=== PATIENT | male | born 1960 | race Caucasian/White ===

== ENCOUNTER → 2016-05-21 | Outpatient (CLI) | payer OTHER ==
[2016-05-21 14:40] LABS: BUN 16 mg/dl (7-24); EST GLOM FILT AFRICAN AMERICAN > 60 ml/min
== END | disposition home or self-care (01) ==
LOC: CT 14:00 → LAB 14:05
PROVIDERS: Family Medicine
DX: R13.10 Dysphagia, unspecified (principal)

== ENCOUNTER → 2016-07-23 | Day surgery (SDC) | payer OTHER ==
[~2016-07-23] VITALS: Ht 177.8 cm; Wt 108.9 kg
[~2016-07-23] MED LIST: LEVOTHYROXIN0.125 M1 PO
--- NOTE | ~2016-07-23 | O ---
[place], [place] OPERATIVE NOTE NAME: NUZHAT JOHNSON UNIT #: [id number] ROOM: DOCTOR: SINDY STARK MD BIRTHDATE: [birth year] DOS: HISTORY OF PRESENT ILLNESS: A 55-year-old patient who has presented with chief complaint of colonic screening concern, undergoing investigation. ALLERGIES: . FAMILY HISTORY: Noncontributory. PAST SURGICAL HISTORY: Lipoma and wisdom teeth extraction. PAST MEDICAL HISTORY: Hypothyroidism. SOCIAL HISTORY: Nonsmoker, nonalcohol consumer. PROCEDURE: Today's procedure part of investigation is colonoscopy plus polypectomy. PREMEDICATION: Versed and Diprivan. SCOPE: Olympus forward-viewing colonoscope 10L video. REPORT: After putting the patient in the left lateral position and after application of lubricant to the scope, the scope was introduced. Thereafter, under direct visualization, I advanced through the length of colon without difficulty. Base of the cecum explored, appendiceal orifice identified, and ileocecal valve was defined. Two polypoid lesions seen above cecum with piecemeal polypectomy removed. Two other polypoid lesions from sigmoid colon 1 with piecemeal polypectomy, one with snare were polypectomized. Samples recovered. Air was suctioned out. The patient was extubated, tolerated procedure well. IMPRESSION: Sigmoid colon polyps, status post 2 polypectomy 1 with the snare 1 with piecemeal polypectomy also, status post 2 other piecemeal polypectomy at cecum with piecemeal polypectomy. PLAN: High fiber fruit diet, activity ad jonelle. FOLLOWUP: Routinely with you in office, p.r.n. visit with us in [facility]. Thank you very much indeed for your kind referral. [place], [place] OPERATIVE NOTE NAME: NUZHAT JOHNSON UNIT #: [id number] ROOM: DOCTOR: SINDY STARK MD BIRTHDATE: [birth year] SINDY STARK MD CM:OPRECORD:OPERATIVE NOTE [id number] SINDY STARK MD [id number] interface
[2016-07-23 11:45] VITALS: BP 128/80
[2016-07-23 12:58] VITALS: BP 109/70
[2016-07-23 13:13] VITALS: BP 102/75
[2016-07-23 13:28] VITALS: BP 119/60
== END | disposition home or self-care (01) ==
LOC: SDC 07-20 13:15
DX: Z12.11 Encounter for screening for malignant neoplasm of colon (principal); D12.0 Benign neoplasm of cecum; D12.5 Benign neoplasm of sigmoid colon; E03.9 Hypothyroidism, unspecified

== ENCOUNTER → 2019-08-13 | Outpatient (CLI) | payer OTHER ==
[2019-08-13 17:06] LABS: BASO % 0.5 % (0.0-1.0); EOS # 0.1 10*3/uL (0.0-0.4); EOS % 1.5 % (1.0-4.0); HEMATOCRIT 45.4 % (42.0-52.0); LYMPH # 1.9 10*3/uL (1.3-4.4); LYMPH % 30.5 % (27.0-41.0); MEAN CELL VOLUME 87.3 fl (80.0-94.0); MEAN CORPUSCULAR HGB 28.7 pg (27.0-31.0); MEAN CORPUSCULAR HGB CONC 32.8 g/dl (33.0-37.0); MEAN PLATELET VOLUME 10.5 fl (9.6-12.3); MONO # 0.6 10*3/uL (0.1-1.0); NEUT # 3.5 10*3/uL (2.3-7.9); NEUT % 57.2 % (47.0-73.0); PLATELET COUNT AUTOMATED 193 10*3/uL (130-400); RED CELL DISTRI WIDTH 12.8 % (0-14.5); RETICULOCYTE % 1.49 % (0.50-2.50); WHITE BLOOD COUNT 6.1 10*3/uL (4.8-10.8)
[2019-08-13 17:10] LABS: BILIRUBIN NEGATIVE (NEGATIVE); BLOOD NEGATIVE (NEGATIVE); CLARITY CLEAR (CLEAR); COLOR YELLOW (YELLOW); GLUCOSE NEGATIVE (NEGATIVE); KETONE NEGATIVE (NEGATIVE); LEUKO ESTERASE NEGATIVE (NEGATIVE); NITRITE NEGATIVE (NEGATIVE); UROBILINOGEN 0.2 E.U./dl (0.2-1.0)
[2019-08-13 17:11] LABS: BACTERIA TRACE; RBC 0-2 rbc/hpf (0-2); WBC 0-2 wbc/hpf (0-5)
[2019-08-13 17:22] LABS: ALBUMIN 3.6 gm/dl (3.1-4.5); ALKALINE PHOSPHATASE 66 U/L (45-117); BUN 16 mg/dl (7-24); CHLORIDE 107 mmol/L (98-107); CHOLESTEROL 193 mg/dL (<200); CREATININE 1.12 mg/dL (0.70-1.30); GAMMA GLUTAMYL TRANSPEPTIDASE 16 U/L (15-85); HDL CHOLESTEROL 50 mg/dl (40-60); IRON 76 ug/dL (65-175); LDL CHOLESTEROL 115 mg/dL (9-159); POTASSIUM 4.5 mmol/L (3.5-5.1); SGOT/AST 17 IU/L (3-35); SGPT/ALT 30 U/L (12-78); SODIUM 139 mmol/L (136-145); T3 UPTAKE 31 % (31-39); THYROXINE (T4) TOTAL 8.6 ug/dl (4.5-12.1); TOTAL IRON BINDING CAPACITY 322 ug/dl (250-450); TOTAL PROTEIN 7.3 gm/dL (6.4-8.2); TRIGLYCERIDES 139 mg/dl (<150); VLDL CHOLESTEROL 28 mg/dL (6-40)
== END | disposition home or self-care (01) ==
LOC: LAB 15:50
PROVIDERS: Family Medicine
DX: R79.89 Other specified abnormal findings of blood chemistry (principal); R53.83 Other fatigue; E78.5 Hyperlipidemia, unspecified

== ENCOUNTER → 2020-02-08 | Outpatient (CLI) | payer OTHER | END | disposition home or self-care (01) | LOC: LAB 11:51 | PROVIDERS: ATTEND Family Medicine | DX: R53.83 Other fatigue (principal); R79.89 Other specified abnormal findings of blood chemistry ==

== ENCOUNTER → 2024-12-06 | Outpatient (CLI) | payer MEDICARE | END | disposition home or self-care (01) | LOC: US 09:52 | PROVIDERS: ATTEND Family Medicine | DX: R22.41 Localized swelling, mass and lump, right lower limb (principal); M79.604 Pain in right leg ==